=== PATIENT | male | born 1960 | race Caucasian/White ===

== ENCOUNTER 2024-07-17 11:08 | Emergency (ER) | payer OTHER ==
[~2024-07-17] VITALS: Ht 180.3 cm; Wt 99.8 kg
[2024-07-17] MEDS ORDERED: predniSONE 20 MG TAB PO ONE (12:30)
[2024-07-17] MEDS ORDERED: FAMOTIDINE 20 MG TAB PO ONE (12:30)
[2024-07-17] MEDS ORDERED: diphenhydrAMINE HCL 50 MG CAP PO ONE (12:30)
[2024-07-17 13:55] VITALS: BP 200/94
== END 2024-07-17 13:40 | disposition home or self-care (01) ==
LOC: ED 11:08
DX: T65.891A Toxic effect of other specified substances, accidental (unintentional), initial encounter (principal); L25.3 Unspecified contact dermatitis due to other chemical products; I10 Essential (primary) hypertension; E78.5 Hyperlipidemia, unspecified
CPT/HCPCS: 99282